=== PATIENT | female | born 1930 | race Caucasian/White ===

== ENCOUNTER 2016-12-28 05:42 | Day surgery (SDC) | payer MEDICARE ==
[~2016-12-28] VITALS: Ht 167.6 cm; Wt 76.7 kg
[2016-12-28] VITALS (9 sets, daily range): BP systolic 118–165; BP diastolic 56–68; PULSE 62–91; RESP 12–18; O2SAT 96–100
[~2016-12-28 05:42] MED LIST: ALBU8.5H2 INHALATION; ASPI-973 PO; ATOR20TA PO; BIOT10004 PO; CALC-140 PO; GLUC-104 PO; HYDR12.55 PO; LEVO88TA4 PO; MAGN250T29 PO; MULT-1065 PO; NITR50CA PO; OMEP20CA11 PO; QUIN20TA PO; RANI300T4 PO; UBID200C31 PO; VALA500T2 PO; VIT1CAPS27 PO; VITA150T PO
[2016-12-28] MEDS ORDERED: Dexamethasone 4 mg/mL Inj ONE (05:43)
[2016-12-28] MEDS ORDERED: Phenylephrine 10,000 mCg/mL Inj ONE (05:43)
[2016-12-28] MEDS ORDERED: fentaNYL-PF 50 mCg/mL 2 mL Inj ONE (05:43)
[2016-12-28] MEDS ORDERED: Propofol 10,000 mCg/mL 20 mL Inj ONE (05:43)
[2016-12-28] MEDS ORDERED: Neostigmine 1 mg/mL 10 mL Inj ONE (05:43)
[2016-12-28] MEDS ORDERED: Ondansetron 2 mg/mL 2 mL Inj ONE (05:43)
[2016-12-28] MEDS ORDERED: Glycopyrrolate 0.2 MG/ML 1mL Inj ONE (05:43)
[2016-12-28] MEDS ORDERED: Rocuronium 10 mg/mL 5 mL Inj ONE (05:43)
[2016-12-28] MEDS: Lactated Ringer's 1,000 ML IV SCH ×4 (05:54→09:18)
[2016-12-28] MEDS ORDERED: Bupivacaine-MPF 0.25%/EPI 30 mL Inj INFILTRATE ONE (07:31)
--- NOTE | 2016-12-28 08:02 | PCM.HPANE ---
Patient Data Date of Service: December 28, 2016 Surgeon Admitting Provider: Attending Provider:Pat Mckenzie MD Primary Care Physician:Stephany Guardado MD Other Provider:Morgan George Anesthesia Reason for Visit Biliary Colic Ht/WT & BMI Height (Feet): 5 Height (Inches): 6 Weight (Kilograms): 76.7 Body Mass Index 27.00 Allergies Coded Allergies: Sulfa (Sulfonamide Antibiotics) (Verified Allergy, Unknown, PURPLE, 12/27/16 ) TURNS PURPLE Uncoded Allergies: SULFA (Adverse Reaction, Severe, turns purple, 12/23/16) Past Anesthesia History Anesthesia History: Denies:: Anesthesia Reactions, Malignant Hyperthermia Diabetes History Hx Diabetes?: No MRSA MRSA: No Medications Blood Thinner: Aspirin Hypertension Medication: Yes (HCTZ,QUINAPRIL) Home Meds Incl Beta Kimi: No Reported Medications Vitamin B Complex & Vit C No.4 (Super B Complex)150 Mg Nbapfa987 Mg PO DAILY 12/23/16 Atorvastatin (Lipitor)20 Mg Unbond42 Mg PO DAILY Ref 0 12/23/16 Omeprazole 20 Mg Capsule.dr20 Mg PO DAILY Ref 0 12/23/16 Nitrofurantoin Macrocrystal 50 Mg Lbzkzfd91 Mg PO Q6H Ref 0 12/23/16 Magnesium Oxide (Magnesium)250 Mg Vfvxqq016 Mg PO DAILY 12/23/16 Levothyroxine 88 Mcg Pqwwsb71 Mcg PO DAILY Ref 0 12/23/16 Glucosa Coto 2Kcl/Chondroitin Coto (Glucosamine Chondroitin Caplet)1 Each Tablet1 Each PO DAILY 12/23/16 Ubidecarenone (Coenzyme Q-10)200 Mg Nkoozmt495 Mg PO DAILY 12/23/16 Calcium Carbonate/Vitamin D3 (Calcium + Vitamin D Tablet)1 Each Tablet1 Each PO DAILY 12/23/16 Aspirin 81 Mg Tswijh96 Mg PO DAILY Ref 0 12/23/16 Discontinued Reported Medications Valacyclovir HCl (Valtrex)500 Mg Wtbdxf753 Mg PO DAILY 30 Days 12/23/16 Ranitidine 300 Mg Opjqna735 Mg PO DAILY Ref 0 12/23/16 Quinapril 20 Mg Qonftu17 Mg PO DAILY 12/23/16 Albuterol HFA (Proair HFA)8.5 Gm Hfa.aer.ad2 Puffs INHALATION Q4H PRN prn #1 INHALER 12/23/16 Vit C/Rafael AC/Lut/Copper/Znox (Preservision Lutein Softgel)1 Each Capsule1 Each PO DAILY 12/23/16 Hydrochlorothiazide 12.5 Mg Ebnqjf49.5 Mg PO DAILY 30 Days Ref 0 12/23/16 Multivits-Min/Iron/FA/Lutein (Centrum Silver Women Tablet)8 Mg Iron-400 Mcg-300 Mcg Tablet1 Each PO DAILY 12/23/16 Biotin 1,000 Mcg Tab.chew1,000 Mcg PO DAILY 12/23/16 Discontinued Scripts Ciprofloxacin (Cipro)500 Mg Xwuoyx879 Mg PO BID #20 TABLET Ref 0 Prov:Prabhjot Andujar MD 06/11/15 History History of ENT Problems?: Yes HEENT History: Positive for:: Cataracts (s/p extractions) Sinus Problem (chronic rhinitis) Denture Type: None Teeth Condition: Within Normal Limits Hx of Heart Problems?: Yes Cardiovascular History: Positive for:: Abdominal Aortic Aneurism (enlarged ascending aorta) Atrial Fibrillation (remote hx of) Cardiac Surgery (HEART CATH W/ ANGIOPLASTY;2 VESSEL CABG 1993) Chest Pain (HX FL 1993) Coronary Artery Disease (HX OF CARDIAC ARREST 1993 ACTIVITY CURRENTLY > 4 METS) Hypertension (HYPERLIPIDEMIA) Irregular Heartbeat (PT REPORTS PALPITATIONS ZIO PATCH-SHORT BURSTS OF VT & SVT) Valvular Heart Disease (MILD MR,AR) Denies:: Congestive Heart Failure Heart Murmur (ECHO 04/2015 EF 55-60%) Hx of Respiratory Problem?: No Respiratory History: Denies:: Tuberculosis Use of C-PAP Machine Hx Neurologic Problems?: Yes Neurological History: Positive for:: TIA (04/2016-CT WNL) Other Neurological Pertinent: HX HSV Hx of GI Problems?: Yes Other GI Pertinent History: C/OF INTERMITTANT NAUSEA, SLIGHT UNINTENTIONAL WEIGHT LOSS Hx of Problems?: Yes Genitourinary History: Positive for:: Urinary Tract Infection (RECURRENT CYSTITIS) Female Hx: Positive for:: Problems with Breasts? (S/P BREAST BX HX BREAST BX 2000-??TREATMENT) Denies:: Currently Skin History: Denies:: History Skin Disorders? 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) Musculoskeletal Trauma (HX WRIST FX) Osteoarthritis Hx of Psycho/Social Problems?: No Hx Surgeries?: Yes (HEART CATH/CABG,LT MARSHA,CATARACTS,BREAST BX) Hx Any Other Health Problems?: Yes Other History: Positive for:: Cancer (BREAST) Hospitalization (CARDIAC) Thyroid Disease (HX THYROID NODULE) Denies:: Endocrine Disease (C/OF COLD INTOLERANCE) Hx Diabetes: No Hx Alcohol Use: NoHx Substance Use: No Smoking Status: Never Smoker Stop/Bang S-Snoring: Do You Snore Loudly: No T-Tired: feel tired, fatigued: Yes O-Obsered: Observed not breath: No P-Blood Pressure: treated: Yes B- Body Mass Index > 35 kg/m2: No A- Age over 50: Yes N- Neck Large Circumference: No G- Gender Male: No HERO Total Score: 3 HERO Risk Assessment: Low Risk, <3 Yes Risk Assessment Category Category 1A: Patient has history of documented sleep apnea, and HAS NOT received any narcotic, sedative or anesthesia administration during this stay. Category 1B: Patient has history of documented sleep apnea, and HAS received any narcotic , sedative or anesthesia administration during this stay Category 2: Patient has SUSPECTED Obstructive Sleep Apnea, and HAS received any narcotic , sedative or anesthesia administration during this stay. Category 3: Patient has SUSPECTED Obstructive Sleep Apnea and HAS NOT received narcotic, sedative or anesthesia administration during this stay. Category 4: Outpatient in Procedural Areas with known sleep apnea or who screen positive for High Risk via the STOP/BANG questionnaire. Exam Exam Vital Signs Vital Signs Date Time Temp Pulse Resp B/P Pulse Ox O2 Delivery O2 Flow Rate FiO2 12/28/16 06:29 36.3 74 16 120/63 100 Room Air General Appearance: Alert, Oriented X3, Cooperative, No Acute Distress HEENT/AIRWAY: MP 2 Lungs: Clear to Auscultation, Normal Air Movement Heart: Exam Unremarkable, Regular Rate/Rhythm, No Murmurs/Rubs/Gallops Meds/Labs/Diagnostics Admission Meds Current Medications Lactated Ringer's (Lr) 1,000 ml @ 120 mls/hr Q8H20M IV Last administered on 05:54; Start 12/28/16 at 05:00; Stop 12/28/16 at 13:19 Acetaminophen (Tylenol) 975 mg PREOP ONCE PO Last administered on 12/28/16 06: 28; Start 12/28/16 at 06:00; Stop 5/3/17 at 06:01; Status DC Plan Impression Patient chart reviewed, patient interviewed and anesthestic plan with risks, benefits, and alternatives discussed, and informed consent obtained. NPO per Anesth. Guidelines: Yes ASA Physical Status: ASA3 Severe Disease Anesthetic Plan: GA Bene/Risks/Altern/Consents: Yes HP Complete Prior to Induction: Yes Tank Davis MD December 28, 2016 07:26
[2016-12-28] MEDS ORDERED: Lactated Ringer's 500 ML IV PRN (08:48)
[2016-12-28] MEDS ORDERED: Lactated Ringer's 1,000 ML IV SCH (08:48)
[2016-12-28] MEDS ORDERED: HYDROmorphone 1 mg/mL Inj IVPUSH PRN (08:50)
[2016-12-28] MEDS ORDERED: Ondansetron 2 mg/mL 2 mL Inj IVPUSH PRN (08:50)
[2016-12-28] MEDS ORDERED: fentaNYL-PF 50 mCg/mL 2 mL Inj IVPUSH PRN (08:50)
[2016-12-28] MEDS ORDERED: MetoCLOpramide 5 mg/mL 2 mL Inj IVPUSH PRN (08:50)
[2016-12-28] MEDS ORDERED: hydrALAZINE 20 mg/mL Inj IVPUSH PRN (08:50)
[2016-12-28] MEDS ORDERED: Labetalol 5 mg/mL 4 mL Inj IV PRN (08:50)
[2016-12-28] MEDS ORDERED: Atropine 0.4 mg/mL Inj IVPUSH PRN (08:50)
[2016-12-28] MEDS ORDERED: EPHEDrine Sulfate 50 mg/mL Inj IVPUSH PRN (08:50)
[2016-12-28] MEDS ORDERED: Phenylephrine 10,000 mCg/mL Inj IVPUSH PRN (08:50)
--- NOTE | 2016-12-28 08:50 | PCM.ANEP1 ---
Post Anesthesia Phase 1 PACU Phase 1 Assessment Date of Service: December 28, 2016 Vital Signs 36.6 146/56 79 16 95% RA Anesthetic Administered: GA Level of Alertness: Sleepy, easy to arouse DEGROOT's with Equal Strength: Yes Pain: No Nausea or Vomiting: No Cardiovascular Function and Hy: Yes Oxygen Delivery: Room Air Lungs: Clear to Auscultation, Normal Air Movement Complications: No Follow up Care: No Tank Davis MD December 28, 2016 08:50
[2016-12-28] MEDS ORDERED: oxyCODONE-Acetamin 5-325 mg Tablet PO PRN (09:00)
--- NOTE | 2016-12-28 09:03 | PCM.SURGOP ---
Surgical Operative Report Date of Service: December 28, 2016 Pre Operative Diagnosis Biliary colic Post Operative Diagnosis Biliary colic Procedure: Laparoscopic cholecystectomy Surgeon and Security Installation Technician: Surgeon: Pat Mckenzie MD Assistants: Rafael Armando PA-C Indication for Procedure This is an 86-year-old woman with postprandial abdominal pain in the right upper quadrant. An abdominal ultrasound was performed revealing a 1 cm stone in the gallbladder. She was diagnosed with biliary colic and consented for laparoscopic cholecystectomy. Findings: 1. A single gallstone was present in the gallbladder as noted on preoperative abdominal ultrasound. 2. Pericholecystic edema, consistent with mild inflammation. Procedure Details The patient was brought to the operating room and placed in supine position. General endotracheal anesthesia was smoothly induced. Antibiotics were infused. A warming blanket and SCDs were placed. A foot board was placed. The operative field was prepped and draped in sterile fashion. A pause was performed to confirm the correct patient, procedure, site, and side. A transverse 10 mm incision was made just below the umbilicus. The abdomen was entered under direct vision using a David port. Three additional 5 mm ports were placed in the epigastrium and right upper quadrant. The gallbladder was identified and lifted cephalad. There was moderate pericholecystic edema. Dissection then proceeded to identify the cystic duct, cystic artery, and to expose the lower one-third of the cystic plate. Once there were two and only two structures entering the gallbladder, the cystic artery and cystic duct were were clipped on both the gallbladder side and the patient's side and divided. The gallbladder was then removed from its bed on the liver with electrocautery. Prior to completely removing the gallbladder, a final look was taken at the stump of the cystic artery and cystic duct, and there was no bleeding or bile leak. The gallbladder was then fully removed from the liver and placed in an EndoCatch bag and removed. The three 5 mm ports were removed under direct vision, the 10 mm mid abdominal port was removed, and a figure-of- eight 0 PDS was used to close the fascia. There was no fascial defect at the end of the case. 0.5% Marcaine with epinephrine was infused at all port sites for postoperative analgesia. The skin was closed with subcuticular 4-0 Monocryl. Sterile dressings were placed. Sponge, instrument, and needle counts were correct at the end of the procedure. The patient was awakened from general anesthesia and taken to the postoperative care unit in good condition. Complications There were no periprocedural complications identified. Surgical Specimen Removed: Yes Specimen sent to Pathology: Yes Surgical Specimen description: Gallbladder Anesthetic Plan: GA Grafts, Implants: None Output, Estimated Blood Loss: 2 (ml) Blood Administration during ortega: No Pat Mckenzie MD December 28, 2016 09:03
--- NOTE | 2016-12-29 10:53 | PATH ---
SURGICAL PATHOLOGY Attending Physician:Pat Mckenzie MD CASE STATUS: Signed Out PATIENT NAME: THOMAS MACHUCA PID: [id number] : 1930 DATE COLLECTED:12/28/2016 15:45 SPECIMEN: Gallbladder CLINICAL HISTORY: BILIARY CELIAC 1. GALLBLADDER FINAL DIAGNOSIS: 1.GALLBLADDER: CHOLELITHIASIS WITH ASSOCIATED CHRONIC CHOLECYSTITIS. ICD10 CODE K80.66 GROSS DESCRIPTION: The specimen is received in one formalin filled container labeled with the patient's name, sublabeled "gallbladder" and consists of an intact 8.0 x 4.0 x 3.5 CM gallbladder. The serosa is smooth. The wall is 0.2-0.3 CM in thickness. The mucosa is a dark green in color. The lumen contains a dark black calculus which measures 0.7 CM in greatest dimension. 5 marketing representative sections are submitted in one cassette. 12/28/2016 DAC MICRO DESCRIPTION: See diagnosis. ICD-9 CODES: CPT CODES: 1: 87308 Electronically Signed Out Edgardo Lomax MD [facility] Pathology [facility] [address], [place] [address] Technical component performed at [facility], [facility] [address], [place], [address]
== END 2016-12-28 23:59 | disposition home or self-care (01) ==
LOC: SAS 05:42
PROVIDERS: ATTEND Surgery
DX: K80.10 Calculus of gallbladder with chronic cholecystitis without obstruction (principal); I25.10 Atherosclerotic heart disease of native coronary artery without angina pectoris; I10 Essential (primary) hypertension; E78.5 Hyperlipidemia, unspecified; I77.89 Other specified disorders of arteries and arterioles; I71.4 Abdominal aortic aneurysm, without rupture; I25.2 Old myocardial infarction; M19.90 Unspecified osteoarthritis, unspecified site; K21.9 Gastro-esophageal reflux disease without esophagitis; Z85.3 Personal history of malignant neoplasm of breast; Z96.642 Presence of left artificial hip joint; Z87.440 Personal history of urinary (tract) infections; Z79.82 Long term (current) use of aspirin; Z95.1 Presence of aortocoronary bypass graft
CPT/HCPCS: 47562; J1100; J2370; J2405; J2710; J3010; J7120